=== PATIENT | male | born 1990 ===

== ENCOUNTER 2022-10-20 21:12 | Emergency (ER) | payer SELFPAY ==
--- OUTSIDE RECORDS SUMMARY | 2022-10-20 21:18 | XMS REPORT | Continuity of Care Document ---
:1990 Author Organization [facility] t Address [address] [facility]. [address] [place] [address] Care Team Providers Name Role Phone Asked, No Pcp Primary Care Physician Unavailable Trish Cotton Attending Clinician Unavailable Trish Cotton Attending Clinician [phone] Doctor Unassigned, Christopher Attending Clinician Unavailable SMOOTH HOLLAND Attending Clinician Unavailable Smooth Holland MD Attending Clinician [phone] Erick Bennett Attending Clinician Unavailable Darby CROW Lucio Attending Clinician Shakira Cantor Attending Clinician Javier Crespo Attending Clinician Unavailable MARCIAL SILVA Attending Clinician Unavailable Marcial Silva MD Attending Clinician Billie Sierra RN Attending Clinician Emeka Hahn MD Attending Clinician Callie Ruiz Attending Clinician Unavailable ISIAH MEDINA Attending Clinician Unavailable Kristine Manuel Attending Clinician Unavailable Kristine Manuel Attending Clinician [phone] Lilly Veloz Attending Clinician Unavailable George Stewart Attending Clinician Unavailable Physician, No Primary or Family Admitting Clinician UnavailYaya Heller Admitting Clinician Unavailable SMOOTH HOLLAND Admitting Clinician Unavailable MARCIAL SILVA Admitting Clinician Unavailable AMMY TORRES Admitting Clinician Unavailable Payers Payer Name Policy Type Policy Number Effective Date Expiration Date S [facility] MEDICAID PENDING PENDING 2019 00:00:00 Problems Condition Condition Condition Status Onset Resolution Last Treating Co mments Source Name Details Category Date Date Treatment Clinician Date Obesity Obesity Disease Active 2019- Univers (BMI (BMI 1-15 ity of 30-39.9) 30-39.9) 00:00: [place] [address] Medical Branch Soft Soft Disease Active 2020-0 Univers tissue tissue 1-14 ity of infection infection 00:00: [place] [address] Medical Branch Laceration Laceration Disease Active 2020-0 Overview : Univers of right of right 1-14 Formattin ity of thigh, thigh, 00:00: g of this [place] initial initial 00 note Medical encounter encounter might be Br anch different from the original. Added automatic ally from request for surgery [id number] Allergies, Adverse Reactions, Alerts Allergy Allergy Status Severity Reaction(s) Onset Inactive Treating Comm ents Source Name Type Date Date Clinician penicill DA Active [place] UNKNOWN 2020-0 [facility] in G 5-09 Clear 00:00: [place] 00 [facility] penicill DA Active [place] UNKNOWN 2018- [facility] in G 2-13 [place] 00:00: d 00 [facility] penicill DA Active U 2013-0 [facility] in G 7-26 Clear 00:00: [place] 00 [facility] PENICILL Drug Active Unknown-Cmnt 2004-0 Un fredi INS Class 7-21 ity of 00:00: [address] Penicill Propensi Active Unknown - 2004-0 Pt isn't U nivers ins ty to See comments 7-21 sure of ity of adverse 00:00: reaction. [place] reaction Medical s Branch Family History Family Member Diagnosis Comments Start Date Stop Date Source Father Alive and well 2013-07-09 2013-07-09 [facility] and 00:00:00 00:00:00 Wellness Sister Heart disease 2013-07-09 2013-07-09 [facility] and 00:00:00 00:00:00 Wellness Mother Alive and well 2013-07-09 2013-07-09 [facility] and 00:00:00 00:00:00 Wellness Brother Alive and well 2013-07-09 2013-07-09 [facility] and 00:00:00 00:00:00 Wellness Social History Social Habit Start Date Stop Date Quantity Comments Source History of tobacco 2022-06-20 Moderate [facility] use 00:00:00 cigarette smoker and Well ness (10-19 cigs/day) Health-related 2022-06-20 soda and energy [facility] al Health behavior 00:00:00 drinks, 24 oz and Wellnes s (observable entity) Tobacco use and 2022-06-20 Cigarette: No [facility] exposure 00:00:00 Details Available and Wel lness Quantity Details - Cigarette: 10 Cigarettes per day Exposure to 2022-04-13 2022-04-23 Not sure University of SARS-CoV-2 (event) 00:00:00 06:45:00 [facility] Cigarettes smoked 2018-09-22 2018-09-22 Celso allen current (pack per 00:00:00 00:00:00 Hospita l day) - Reported Alcohol intake 2018-09-22 2018-09-22 Current drinker Metho dist 00:00:00 00:00:00 of [facility] (finding) Sex [birth year] At [birth year] [facility] 00:00:00 00:00:00 Hospital Smoking Status Start Date Stop Date Source Unknown if ever smoked [facility] Heavy tobacco smoker 2022-05-12 00:00:00 [facility] Smokes tobacco daily 2019-09-03 00:00:00 [facility] ity of [place] Medical [facility] Medications Ordered Filled Start Stop Current Ordering Indication Dosage Frequency Signature Comments Components Source Medication Medication Date Date Medication? Clinician (SIG) Name Name losartan 50 2021-08 No 1{table Q1D take 1 [Pat Resp [facility] mg-hydrochl 1- t} tablet by = 0 pct;] Health orothiazide 00:00: oral route Group D and 12.5 mg 00 every day Well[facility] tablet s losartan 50 2021-08 No 1{table Q1D take 1 [Pat Resp [facility] mg-hydrochl 1- t} tablet by = 0 pct;] Health orothiazide 00:00: oral route Group D and 12.5 mg 00 every day [facility] tablet s losartan 50 2021-08 No 1{table Q1D take 1 [Pat Resp [facility] mg-hydrochl 1- t} tablet by = 0 pct;] Health orothiazide 00:00: oral route Group D and 12.5 mg 00 every day [facility] tablet s ondansetron 2021- No 4mg 4 mg, Slow Univers (ZOFRAN 04-23 IV Push, ity of (PF)) 11:30: 11:24 ONCE, 1 [place] injection 4 00 :00 dose, On Medi bridget mg 04/23/22 Branch at 0630, ESTHER morpHINE (4 2021- No 4mg 4 mg, Slow Univers mg/mL) 04-23 IV Push, ity of injection 4 11:30: 11:23 [place] 1 [place] :[place] dose, On Medical 04/23/22 Branch at 0630, STAT azithromyci Yes [id number] 250mg Take 1 Univers n 250 mg 7-19 tablet by ity of tablet 00:00: mouth [place] 00 daily. Medical Take 500 Branch mg day 1, then 250 mg days 2 to 5. azithromyci Yes [id number] 250mg Take 1 Univers n 250 mg 7-19 tablet by ity of tablet 00:00: mouth [place] 00 daily. Medical Take 500 Branch mg day 1, then 250 mg days 2 to 5. cyclobenzap 2020-0 Yes [id number] 10mg Take 1 Univers rine 10 mg 6-04 tablet by ity of tablet 00:00: mouth 3 [place] 00 (three) Medical times Branch daily as needed for Muscle Spasms. cyclobenzap 2020-0 Yes [id number] 10mg Take 1 Univers rine 10 mg 6-04 tablet by ity of tablet 00:00: mouth 3 [place] 00 (three) Medical times Branch daily as needed for Muscle Spasms. mupirocin 2 2020-0 Yes [id number] Apply to Univers % ointment 1-26 area(s) 3 ity of 00:00: (three) [place] 00 times Medical daily. Branch mupirocin 2 2020-0 Yes [id number] Apply to Univers % ointment 1-26 area(s) 3 ity of 00:00: (three) [place] 00 times Medical daily. Branch HYDROcodone 2020-0 Yes [id number] 1{tbl} Take 1 Univers -acetaminop 1-21 [id number] tablet by i ty of hen 10-325 00:00: mouth [place] mg tablet 00 every 6 Medical (six) Branch hours as needed for Pain (scale 4-6) or Pain (scale 7-10). HYDROcodone 2020-0 Yes [id number] 1{tbl} Take 1 Univers -acetaminop 1-21 [id number] tablet by i ty of hen 10-325 00:00: mouth [place] mg tablet 00 every 6 Medical (six) Branch hours as needed for Pain (scale 4-6) or Pain (scale 7-10). acetaminoph 2020-0 Yes [id number] 650mg Take 1 Univers en (TYLENOL 1-17 [id number] tablet by i ty of 8 HOUR) 650 00:00: mouth [place] mg CR 00 every 8 Medical tablet (eight) Branch hours as needed for Pain. acetaminoph 2020-0 Yes [id number] 650mg Take 1 Univers en (TYLENOL 1-17 [id number] tablet by i ty of 8 HOUR) 650 00:00: mouth [place] mg CR 00 every 8 Medical tablet (eight) Branch hours as needed for Pain. No known 2019-0 No No known Metho di medications 2-[address] 15:23: s Hosp[facility] 06 l No known 2019-0 No No known Metho di medications 2-[address] 15:23: s Hospita 06 l No known 2019-0 No No known Metho di medications 2-[address] 15:23: s [facility]osp[facility] 06 l No known 2019-0 No No known Metho di medications 2-[address] 15:23: s Hospita 06 l No known 2019-0 No No known Metho di medications 2-[address] 15:23: s Hospita 06 l No known 2019-0 No No known Metho di medications 2-[address] 15:23: s Hospita 06 l acetaminoph Yes [id number] 1{tbl} Take 1-2 Univers en-codeine 1-22 tablets by ity of 300-30 mg 00:00: mouth [place] tablet 00 every 6 Medical (six) Branch hours as needed for Pain (scale 1-3). acetaminoph Yes [id number] 1{tbl} Take 1-2 Univers en-codeine 1-22 tablets by ity of 300-30 mg 00:00: mouth [place] tablet 00 every 6 Medical (six) Branch hours as needed for Pain (scale 1-3). MEDROL 2005-0 Yes as Univers (KASEY) 4 MG 4-07 directed ity o f ORAL DSPK 00:00: [address] MEDROL 2006-0 Yes as Univers (KASEY) 4 MG 4-07 directed ity o f ORAL DSPK 00:00: [address] LORATADINE 2005-1 Yes take one Uni vers 10 MG ORAL 0-20 po x ity of TAB 00:00: 30days [address] LORATADINE 2005-1 Yes take one Uni vers 10 MG ORAL 0-20 po x ity of TAB 00:00: 30days [address] Immunizations Ordered Filled Immunization Date Status Comments Sourc e Immunization Name Name Td 2022-04-23 Completed University of 00:00:00 [facility] Td 2022-04-23 Completed University of 00:00:00 [facility] Td 2018-09-10 Completed University of 00:00:00 [facility] Td 2018-09-10 Completed [facility] 00:00:00 [facility] Vital Signs Vital Name Observation Time Observation Value Comments Source Body temperature 2022-04-23 15:30:00 37.06 Gabriela [facility] Respiratory rate 2022-04-23 15:30:00 23 /min [facility] O[facility] saturation in 2022-04-23 15:30:00 98 /min [facility] Arterial blood by [facility] Pulse oximetry Branch Systolic blood 2022-04-23 15:30:00 164 mm[Hg] Univer sity of pressure [facility] Diastolic blood 2022-04-23 15:30:00 112 mm[Hg] [facility] 2022-04-23 15:30:00 89 /min Universi ty [facility] Body height 2022-04-23 11:16:41 177[facility]8 [facility] weight 2022-04-23 11:16:41 108.863 kg [facility] BMI 2022-04-23 11:16:41 34.44 [facility]m2 [facility] 2022-06-20 14:44:00 150 mm[Hg] [facility] and Systolic Wellness Intravascular 2022-06-20 14:44:00 103 mm[Hg] [facility] and Diastolic Wellness Body height 2022-06-20 14:40:00 177.80 cm [facility] Wellness Body Weight 2022-06-20 14:40:00 109.860 kg [facility] Intravascular 2022-06-20 14:40:00 140 mm[Hg] [facility] Systolic Wellness Intravascular 2022-06-20 14:40:00 87 mm[Hg] [facility] Diastolic Wellness Heart Rate 2022-06-20 14:40:00 85 /min [facility] Body Temperature 2022-06-20 14:40:00 36.67 Gabriela [facility] Respiratory rate 2022-06-20 14:40:00 16 /min [facility] Body mass index 2022-06-20 14:40:00 34.75 kg/m2 [facility] Health and Wellness SaO2 % BldA PulseOx 2022-06-20 14:40:00 100 /min [facility] Body height 2022-05-12 13:45:00 177.80 cm [facility] Body Weight 2022-05-12 13:45:00 109.588 kg [facility] Wellness Intravascular 2022-05-12 13:45:00 137 mm[Hg] [facility] Health and Systolic Wellness Intravascular 2022-05-12 13:45:00 88 mm[Hg] [facility] Health and Diastolic Wellness Heart Rate 2022-05-12 13:45:00 93 /min [facility] Well[facility] Body Temperature 2022-05-12 13:45:00 36.67 [facility]ela [facility] Respiratory rate 2022-05-12 13:45:00 18 /min [facility] Health and Wellness Body mass index 2022-05-12 13:45:00 34.67 kg/m2 [facility] and Wellness SaO2 % BldA PulseOx 2022-05-12 13:45:00 98 /min [facility] Health and Wellness Procedures Procedure Date / Time Performing Clinician Source Performed [facility] 2022-06-22 05:01:00 [facility] Name Medical Branch Established Patient 2022-06-20 00:00:00 [facility] Health and Office Visit-Level Wellness Three Nominal Fee 2022-06-20 00:00:00 [facility] Heal th and Wellness Nominal Fee 2022-05-12 00:00:00 [facility] Heal th and Wellness Radiologic examination, 2022-05-12 00:00:00 [facility] Health and forearm, 2 views (APand Wellness Lateral) Established Patient 2022-05-12 00:00:00 [facility] and Office Visit-Level Wellness Three AR RESUP NPTERF WND 2022-04-23 13:12:46 [facility] BODY 2.6-7.5 CM [facility] Branch AR RESUPERF WND FACE 2022-04-23 13:11:23 Khushi Villaseñor [facility] 2.6-5 CM [facility] Branch XR CLAVICLE COMP LEFT 2022-04-23 12:05:33 Amalia Smooth [facility] XR ELBOW >3 VW LEFT 2022-04-23 12:05:33 Smooth Holland [facility] XR FOREARM 2 VW LEFT 2022-04-23 12:05:33 Smooth Holland [facility] XR HAND 3+ VW LEFT 2022-04-23 12:05:33 Smooth Holland [facility] XR HUMERUS 2 VW LEFT 2022-04-23 12:05:33 Smooth Holland [facility] XR SHOULDER 2+ VW LEFT 2022-04-23 12:05:33 [facility] CERVICAL SPINE WO 2022-04-23 11:44:08 Smooth [facility] CONTRAST [facility] CT 2022-04-23 11:44:08 Smooth [facility] MAXILLOFACIAL/MANDIBLE [facility] WO CONTRAST CT HEAD WO CONTRAST 2022-04-23 11:44:08 Smooth Holland [facility] COMP. METABOLIC PANEL 2022-04-23 11:19:00 Smooth Holland [facility] ([id number]) [facility] CBC WITH DIFF 2022-04-23 11:19:00 Amalia [facility] [id number] 2020-04-12 00:00:00 [facility] [id number] 2020-04-12 00:00:00 [facility] [id number] 2020-04-12 00:00:00 [facility] Nominal Fee 2019-08-28 00:00:00 [facility] Heal th and Wellness Urinalysis, Auto W/O 2019-08-28 00:00:00 [facility] Health and Scope Wellness Established Patient 2019-08-28 00:00:00 [facility] Health and Office Visit-Level Wellness Three Chylmd Trach DNA Amp 2019-08-28 00:00:00 [facility] Probe Wellness N.Gonorrhea DNA Amp 2019-08-28 00:00:00 [facility] Prob Wellness Urinalysis culture and 2019-08-28 00:00:00 [facility] Health and sensitivity Wellness Nominal Fee 2019-08-01 00:00:00 [facility] Wellness Established Patient 2019-08-01 00:00:00 [facility] Health and Office Visit-Level Wellness Three Nominal Fee 2018-09-17 00:00:00 [facility] and Wellness Established Patient 2018-09-17 00:00:00 [facility] Health and Office Visit-Level Two Wellness Established Patient 2017-05-22 00:00:00 [facility] Health and Office Visit-Level Wellness Three New Patient Office 2013-07-09 00:00:00 [facility] and Visit-Level Two Wellness Void Duplicate 2011-12-09 00:00:00 [facility] Heal th and Encounter Wellness Clinic Fee 2010-08-16 00:00:00 [facility] Heal th and Wellness Established Patient 2010-08-16 00:00:00 [facility] Health and Office Visit-Level Two Wellness Supplies and Materials 2010-08-16 00:00:00 [facility] Health and Wellness Encounters Start End Encounter Admission Attending Care Care Encounter Source Date/Time Date/Time Type Type Clinicians Facility Department ID 2022-05-15 Outpatient CHW CHW [id number] [facility] 12:20:44 6 [facility] 2021-06-17 Emergency [facility] [id number] Univers 07:31:30 ity [facility] 2021-06-16 Emergency [facility] [id number] Univers 23:33:17 ity [facility] 2020-04-12 Inpatient HCAMN CUCA [id number] [facility] 19:39:00 [id number] [facility] 2020-04-11 Inpatient HCAMN CUCA [id number] [facility] 09:02:00 [id number] [facility] 2019-12-27 Inpatient HCAMN MEXP [id number] [facility] 00:15:00 [id number] [facility] 2022-07-11 2022-07-11 Outpatient KING Cotton CHW [id number] [facility] 15:14:00 15:14:00 [facility] 2022-07-11 2022-07-11 Outpatient KING Cotton [id number] [facility] 15:14:00 15:14:00 Trish [id number] [facility] [id number] a nd 9af [id number] [facility] 2022-06-26 2022-06-26 Outpatient KING Cotton CHW [id number] [facility] 13:41:00 13:41:00 Trish [facility] 2022-06-26 2022-06-26 Outpatient KING Cotton [id number] [facility] 13:41:00 13:41:00 Trish [id number] [facility] [id number] a nd [id number] [facility] 2022-06-22 2022-06-22 Orders Doctor WILLIAM [id number] Univers 00:00:00 00:00:00 Only Unassigned, MISHA [id number] ity of Christopher [facility] 4.2.7.2.686 Hector as [id number] [place] [address] Branch 2022-06-20 2022-06-20 Outpatient KING Cotton CHW [id number] [facility] 14:40:00 14:40:00 [facility] 2022-06-20 2022-06-20 Establishe KING Cotton [id number] [facility] 14:40:00 14:40:00 d Patient Trish [id number] Health Office [id number] a nd Visit-[facility] 015 [id number] [facility] alta [facility] 2022-05-25 2022-05-25 Outpatient KING Cotton CHW [id number] [facility] 15:16:00 15:16:00 [facility] 2022-05-25 2022-05-25 Outpatient KING Cotton [id number] [facility] 15:16:00 15:16:00 Trish [id number] Health [id number] a nd [id number] [id number] [facility] 2022-05-15 2022-05-15 Outpatient KING Cotton CHW [id number] [facility] 14:43:00 14:43:00 [facility] 2022-05-15 2022-05-15 Outpatient KING Cotton [id number] [facility] 14:43:00 14:43:00 Trish [id number] Health [id number] a nd [id number] Hector gore 2022-05-12 2022-05-12 Outpatient KING Cotton CHW [id number] [facility] 13:40:00 13:40:00 Trish [facility] and Hector gore 2022-05-12 2022-05-12 Establishe KING Cotton [id number] [facility] 13:40:00 13:40:00 d Patient Trish [id number] Health Office [id number] a nd [facility] [id number] [facility] Roth s 2022-04-23 2022-04-23 Emergency X AUFDERHEIDE [facility] ERT [id number] Univers 06:15:00 10:46:00 , SMOOTH brown of [facility] 2022-04-23 2022-04-23 [facility] [id number] Univers 06:15:00 10:46:00 , Smooth VALERIO [id number] i ty of Criselda KELLY 4.2.7.2.686 [facility] [id number] [address] 2020-04-12 2020-04-12 Outpatient Maishagavin, LAURIE LABO [id number] [facility] 23:58:00 23:58:00 Erick [id number] [facility] 2020-03-07 2020-03-07 Emergency [facility] [id number] 06:06:15 10:36:00 [facility] [id number] Yolanda 4.2.7.2.686 Lynn [id number] [place] [address] (CLC) 2020-01-22 2020-01-22 Emergency Leidy, [facility] [id number] 13:25:46 17:00:00 Shakira Valerio 350.1.13.10 [place] 4.2.7.2.686 [place] [id number] 2020-01-22 2020-01-22 Orders Doctor WILLIAM [id number] 00:00:00 00:00:00 Only Unassigned, MISHA 350.1.13.10 Christopher [place] [id number] 2020-01-05 2020-01-05 Outpatient KING Crespo W [id number] [facility] 15:09:00 15:09:00 [facility] 2019-11-14 2019-11-15 Emergency X [facility] ERT [id number] Univers 23:57:34 05:49:00 MARCIAL brown [facility] 2019-11-14 2019-11-15 Emergency [facility] [id number] 23:57:34 05:49:00 Marcial Valerio 350.1.13.10 [place] 4.2.7.2.686 [place] [id number] 2019-10-07 2019-10-07 Patient Melva Sierra [id number] 00:00:00 00:00:00 Outreach Billie Lanier [id number] El[place] 4.2.7.2.686 [id number] 2019-09-22 2019-09-23 Emergency Emeka Hahn [facility] [id number] 23:25:55 00:11:00 Health [id number] Clear 4.2.7.2.686 Lynn [id number] [place] [address] ([facility]) 2019-09-14 2019-09-14 [facility] [id number] 17:55:33 19:55:00 Shakira [facility] 350.1.13.10 League 4.2.7.2.686 [facility] [id number] [address] ([facility]) 2019-09-11 2019-09-11 Patient Carrington-Yair Floydn [id number] 08:42:44 09:27:44 Outreach Yannick kay [id number] Callie Medina [place] 4.2.7.2.686 [id number] 2019-09-10 2019-09-10 Patient James Frye [id number] 00:00:00 00:00:00 Outreach Yannick kay [id number] Callie C [place] 4.2.7.2.686 [id number] 2019-09-08 2019-09-08 Transition Melva Sierra [id number] 00:00:00 00:00:00 of Care Billie A [place] 350.1.13.10 [place] 4.2.7.2.686 [id number] 403 2019-09-02 2019-09-05 Inpatient X CAROL, [facility] ANGIE [id number] Univers 19:43:13 13:30:00 ISIAH brown [facility] 2019-09-02 2019-09-02 Outpatient [facility] [id number] [facility] 09:07:00 09:07:00 , [facility] 2019-08-28 2019-08-28 Outpatient [facility] [id number] [facility] 10:20:00 10:20:00 , [facility] 2019-08-28 2019-08-28 [facility] [id number] [facility] 10:20:00 10:20:00 d Patient , Kristine [id number] Health Office [id number] a nd Visit-[facility] [id number] [id number] [facility] 2019-08-11 2019-08-11 Outpatient Cherie, [facility] [id number] [facility] 11:52:00 11:52:00 [facility] 2019-08-01 2019-08-01 [facility] [id number] [facility] 16:20:00 16:20:00 [facility] 2019-08-01 2019-08-01 [facility] [id number] [facility] 16:20:00 16:20:00 d Patient [id number] Health Office [id number] a nd Visit-Leve 9af [id number] Ramses Roth s 2018-10-23 2018-10-23 Outpatient Terry, W CHW [id number] [facility] 10:40:00 10:40:00 [facility] Young s 2018-09-19 2018-09-19 [facility] [id number] [facility] 11:23:00 11:23:00 [facility] 2018-09-17 2018-09-17 [facility] [id number] [facility] 16:00:00 16:00:00 [facility] Hector s 2018-09-17 2018-09-17 Establishe [facility] [id number] [facility] 16:00:00 16:00:00 d Patient [id number] [id number] Health Office [id number] a nd Visit-Leve 9af [id number] Ramses Mendez s 2017-05-22 2017-05-22 Establishe [facility] [id number] [facility] 11:00:00 11:00:00 d Patient Vipul-44ba-85b [id number] -[id number] Health Office [id number] a nd Visit-Leve 9af [id number] Ramses Roth s 2013-07-09 2013-07-09 New [facility] [id number] e7d78b 3e-0 [facility] 14:00:00 14:00:00 Patient Isamar44ba-85b [id number] Health Office [id number] a nd Visit-Leve 9af [id number] Ramses Mendez s 2011-12-09 2011-12-09 Outpatient W [id number] be5 [id number]-6 [facility] 12:00:00 12:00:00 [id number]-4504-901 73b-46ed-8 [facility] [id number] a nd ee2 73a198 Hector s 2010-08-16 2010-08-16 [facility] [id number] bfa 2g9cr-8 [facility] 14:35:00 14:35:00 d Patient 7a-44q7-11y [id number]-5139 -9 Health Office [id number] morgan-1dcbb6 a nd Visit-Leve 257 [id number] Ramses Mendez s 2006-06-18 2006-06-18 Outpatient [facility] [id number] [facility] 00:00:00 10:45:00 6 ity of [facility] 2006-05-21 2006-05-21 [facility] [id number] [facility] 00:00:00 14:45:00 5 ity of [facility] 2006-05-07 2006-05-07 [facility] [id number] [facility] 00:00:00 12:01:00 1 ity [facility] 2006-04-25 2006-04-25 [facility]patient [facility] [id number] [facility] 00:00:00 15:19:00 6 ity of [facility] 2006-04-11 2006-04-11 [facility]patient [facility] [id number] [facility] 00:00:00 16:25:00 1 ity of [facility] 2006-04-05 2006-04-05 [facility] [id number] [facility] 00:00:00 15:40:00 9 ity of [facility] 2006-04-02 2006-04-02 [facility] [id number] [facility] 00:00:00 11:01:00 7 ity of [facility] 2006-03-26 2006-03-26 [facility] [id number] [facility] 00:00:00 15:00:00 0 ity of [facility] 2006-03-14 2006-03-14 [facility] [id number] [facility] 00:00:00 14:38:00 3 ity of [facility] 2005-06-14 2005-06-14 [facility] [id number] [facility] 00:00:00 15:25:00 3 ity [facility] 2005-05-31 2005-05-31 [facility] [id number] [facility] 00:00:00 16:39:00 9 ity [facility] 2005-03-15 2005-03-15 Outpatient [facility] [id number] Univers 00:00:00 13:54:00 9 [facility] Results Test Description Test Time Test Comments Results Result Comments Source COMP. METABOLIC PANEL (49090) 2022-04-23 11:52:23 Test Item Value Reference Range Interpretation Comme nts NA (test code = 5811276562) 137 mmol/L 135-145 K (test code = 5694076299) 4.4 mmol/L 3.5-5 CL (test code = 8972447946) 101 mmol/L 98-108 CO2 TOTAL (test code = 2206968657) 30 mmol/L 23-31 AGAP (test code = 1893858620) 2-16 BUN (test code = 5923869262) 17 mg/dL 7-23 GLUCOSE (test code = 2147654257) 108 mg/dL 70-110 CREATININE (test code = 1.14 mg/dL 0.6-1.25 8799259455) TOTAL BILI (test code = 0.7 mg/dL 0.1-1.1 6500906484) CALCIUM (test code = 8140296633) 8.8 mg/dL 8.6-10.6 T PROTEIN (test code = 7038704793) 6.3 g/dL 6.3-8.2 ALBUMIN (test code = 8824485812) 4.3 g/dL 3.5-5 ALK PHOS (test code = 5486550924) 90 U/L 34-122 ALTv (test code = 1742-6) 42 U/L 5-50 AST(SGOT) (test code = 7706776726) 51 U/L 13-40 H eGFR (test code = 5991766219) mL/min/1.73m2 MARION (test code = MARION) Association of Glomerular Filtration Rate (GFR) and Staging of Kidney Disease* + +-------- + ------+| GFR (mL/min/1.73 m2) ?| With Kidney Damage ?| ?Without Kidney Damage+ +-- + +| ?>90 ?| ?Stage one ?| ? Normal ?+ +------- + -------+| ?60-89 ?| ?Stage two ?| ? Decreased GFR ? + +-------- + ------+| ?30-59 ?| ?Stage three ?| ? Stage three ? + +-------- + ------+| ?15-29 ?| ?Stage four ? | ? Stage four ?+ +------- + -------+| ?<15 (or dialysis) ? ?| ?Stage five ? | ? Stage five ?+ +------- + -------+ *Each stage assumes the associated GFR level has been in effect for at least three months. ?Stages 1 to 5, with or without kidney disease, indicate chronic kidney disease. Notes: Determination of stages one and two (with eGFR >59mL/min/1.73 m2) requires estimation of kidney damage for at least three months as defined by structural or functional abnormalities of the kidney, manifested by either:Pathological abnormalities or Markers of kidney damage (including abnormalities in the composition of the blood or urine or abnormalities in imaging tests). Lab Interpretation (test code = Abnormal 18366-5) [facility] WITH [id number] 11:39:29 Test Item Value Reference Range Interpretation Comments WBC (test code = See_Comment H [Automated 5890-2) message] The system which generated this result transmit tito reference range : 4.20 - 10.70 10*3/?L. The reference range was not used to interpret this result as normal/abnormal . RBC (test code = See_Comment [Automated 329-8) message] The system which generated this result transmit tito reference range : 4.26 - 5.52 10*6/?L. The reference range was not used to interpret this result as normal/abnormal . HGB (test code = 15.2 g/dL 12.2-16.4 718-7) HCT (test code = 43.9 % 38.4-49.3 4544-3) MCV (test code = 91.1 fL 81.7-95.6 787-2) MCH (test code = 31.5 pg 26.1-32.7 785-6) MCHC (test code = 34.6 g/dL 31.2-35 786-4) RDW-SD (test code = 40.1 fL 38.5-51.6 77499-7) RDW-CV (test code = 12.0 % 12.1-15.4 L 788-0) PLT (test code = See_Comment [Automated 777-3) message] The system which generated this result transmit tito reference range : 150 - 328 10*3/ ?L. The reference range was not u sed to interpret th is result as normal/abnormal . MPV (test code = 11.5 fL 9.8-13 63724-4) NRBC/100 WBC (test See_Comment [Automat ed code = 6928961084) message] The system which generated this result transmit tito reference range : 0.0 - 10.0 /100 WBCs. The reference range was not used to interpret this result as normal/abnormal . NRBC x10^3 (test code See_Comment [Auto mated = 5298162144) message] The system which generated this result transmit tito reference range : 10*3/?L. The reference range was not used to interpret this result as normal/abnormal . GRAN MAT (NEUT) % 82.7 % (test code = 770-8) IMM GRAN % (test code 0.60 % = 8673100054) LYMPH % (test code = 10.6 % 736-9) MONO % (test code = 5.7 % 5905-5) EOS % (test code = 0.1 % 713-8) BASO % (test code = 0.3 % 706-2) GRAN MAT x10^3(ANC) 14.40 10*3/uL 1.99-6.95 H (test code = 3755718687) IMM GRAN x10^3 (test 0.11 10*3/uL 0-0.06 H code = 2200118737) LYMPH x10^3 (test code 1.84 10*3/uL 1.09-3.23 = 731-0) MONO x10^3 (test code 0.99 10*3/uL 0.36-1.02 = 742-7) EOS x10^3 (test code = 0.06-0.53 L 711-2) BASO x10^3 (test code 0.06 10*3/uL 0.01-0.09 = 704-7) Lab Interpretation Abnormal (test code = 51521-1) [facility]2020-08-27 09:06:00 Test Item Value Reference Range Interpretation Comments VANCOMYCIN (test code 2.4 MCG/ML 5.0-26.0 L Result is in = VANCO) Microgram per milliliter. Specimen comments: PLEASE DRAW RANDOM LEVEL PRIOR TO 0900 DOSEComments to High Density Finishing Operator: PLEASE DRAW RANDOM LEVEL PRIOR TO 0900 DOSEBASIC METABOLIC PANEL 2020-04-15 09:03:00 Test Item Value Reference Range Interpretation Comments SODIUM (test code = NA) 138 mmol/l 134.0-147.0 N POTASSIUM (test code = K) 3.5 mmol/L 3.6-5.2 L CHLORIDE (test code = CL) 100 mmol/l 98.0-107.0 N CARBON DIOXIDE (test code = CO2) 31.0 mmol/l 21.0-33.0 N ANION GAP (test code = GAP) 10.5 0-20 N GLUCOSE (test code = GLU) 101 mg/dl 70.0-110.0 N BLOOD UREA NITROGEN (test code = 8 mg/dl 7.0-18.0 N BUN) CREATININE (test code = CREAT) 0.87 mg/dL 0.60-1.30 N GFR NON BLACK (test code = 109 mL/min 105-110 N GFRNONBLACK) GFR BLACK (test code = GFRBLACK) 132 mL/min 127-133 N CALCIUM (test code = CA) 8.7 mg/dl 8.0-10.5 N PT. HARDSTICK WILL LET ANOTHER PHELB TRY E.LAB.KN .CBC W/AUTO DIFF 2020-04-15 08:36:00 Test Item Value Reference Range Interpretation Comments WHITE BLOOD CELL (test code = 6.9 K/mm3 4.5-11.0 N WBC) RED BLOOD CELL (test code = 4.42 M/mm3 4.40-5.90 N RBC) HEMOGLOBIN (test code = HGB) 14.3 gm/dL 13.0-17.0 N HEMATOCRIT (test code = HCT) 43.3 % 36.0-48.0 N MEAN CELL VOLUME (test code = 98.0 UM3 80.0-94.0 H MCV) MEAN CELL HGB (test code = MCH) 32.4 UUG 25.5-32.5 N MEAN CELL HGB CONCETRATION 33.0 gm/dL 29.0-35.5 N (test code = MCHC) RED CELL DISTRIBUTION WIDTH 12.9 % 11.5-15.0 N (test code = RDW) RED CELL DISTRIBUTION WIDTH SD 46.5 fL 34.8-50.2 N (test code = RDW-SD) PLATELET COUNT (test code = 231 K/mm3 150-400 N PLT) MEAN PLATELET VOLUME (test code 11.5 fl 7.4-10.4 H = MPV) NEUTROPHIL % (test code = NT%) 64.5 % 49.0-76.0 N IMMATURE GRANULOCYTE % (test 0.6 % 0.0-0.4 H code = IG%) LYMPHOCYTE % (test code = LY%) 24.6 % 23.0-38.0 N MONOCYTE % (test code = MO%) 7.7 % 1.0-10.0 N EOSINOPHIL % (test code = EO%) 1.7 % 1.0-5.0 N BASOPHIL % (test code = BA%) 0.9 % 0.0-1.0 N NEUTROPHIL # (test code = NT#) 4.4 K/mm3 2.4-6.3 N IMMATURE GRANULOCYTE # (test 0.04 x10 3/uL 0.00-0.07 N code = IG#) LYMPHOCYTE # (test code = LY#) 1.7 K/mm3 1.2-4.0 N MONOCYTE # (test code = MO#) 0.5 K/mm3 0.0-0.6 N EOSINOPHIL # (test code = EO#) 0.1 K/MM3 0.0-0.7 N BASOPHIL # (test code = BA#) 0.1 K/mm3 0.0-0.2 N PT HARDSTICK WILL LET ANOTHER PHELB TRY E.LAB.KN .VANCOMYCIN TROUGH 2020-04-14 15:18:00 Test Item Value Reference Range Interpretation Comments VANCOMYCIN TROUGH 32.8 mcg/mL 10-20 H Other dise ase (test code = VANCT) associat ed reference ranges: 10 - 15 mcg/mL Cellulit is, urinary tract infection 15 - 20 mcg/mL Bacterem ia, infective endocarditis, osteomyelitis, meningitis, pneumonia, herbert re skin/soft tissu e infection, spin al abscess Specimen comments: PLEASE DRAW VANCO TROUGH PRIOR TO 1500 DOSE, THANK YOUComments to High Density Finishing Operator: PLEASE MAKE SURE CHRISTY IS NOT HANGING, THANK YOU COMPREHENSIVE METABOLIC [id number] 07:21:00 Test Item Value Reference Range Interpretation Comments SODIUM (test code = NA) 135 mmol/l 134.0-147.0 N POTASSIUM (test code = K) 3.5 mmol/L 3.6-5.2 L CHLORIDE (test code = CL) 98 mmol/l 98.0-107.0 N CARBON DIOXIDE (test code = CO2) 28.7 mmol/l 21.0-33.0 N ANION GAP (test code = GAP) 11.8 0-20 N GLUCOSE (test code = GLU) 112 mg/dl 70.0-110.0 H BLOOD UREA NITROGEN (test code = 10 mg/dl 7.0-18.0 N BUN) CREATININE (test code = CREAT) 0.86 mg/dL 0.60-1.30 N GFR NON BLACK (test code = 110 mL/min 105-110 N GFRNONBLACK) GFR BLACK (test code = GFRBLACK) 133 mL/min 127-133 N TOTAL PROTEIN (test code = PROT) 6.5 GM/DL 6.0-8.1 N ALBUMIN (test code = ALB) 2.6 gm/dL 3.2-4.7 L CALCIUM (test code = CA) 8.6 mg/dl 8.0-10.5 N BILIRUBIN TOTAL (test code = 0.5 mg/dl 0.0-1.0 N BILT) SGOT/AST (test code = AST) 17 Units/L 15.0-37.0 N SGPT/ALT (test code = ALT) 22 Units/L 12.0-78.0 N ALKALINE PHOSPHATASE TOTAL (test 69 Units/L 50.0-136.0 N code = ALKP) CBC W/AUTO [id number] 07:12:00 Test Item Value Reference Range Interpretation Comments WHITE BLOOD CELL (test code = 15.1 K/mm3 4.5-11.0 H WBC) RED BLOOD CELL (test code = 4.13 M/mm3 4.40-5.90 L RBC) HEMOGLOBIN (test code = HGB) 13.1 gm/dL 13.0-17.0 N HEMATOCRIT (test code = HCT) 39.9 % 36.0-48.0 N MEAN CELL VOLUME (test code = 96.6 UM3 80.0-94.0 H MCV) MEAN CELL HGB (test code = MCH) 31.7 UUG 25.5-32.5 N MEAN CELL HGB CONCETRATION 32.8 gm/dL 29.0-35.5 N (test code = MCHC) RED CELL DISTRIBUTION WIDTH 12.9 % 11.5-15.0 N (test code = RDW) RED CELL DISTRIBUTION WIDTH SD 45.9 fL 34.8-50.2 N (test code = RDW-SD) PLATELET COUNT (test code = 258 K/mm3 150-400 N PLT) MEAN PLATELET VOLUME (test code 11.6 fl 7.4-10.4 H = MPV) NEUTROPHIL % (test code = NT%) 80.5 % 49.0-76.0 H IMMATURE GRANULOCYTE % (test 0.6 % 0.0-0.4 H code = IG%) LYMPHOCYTE % (test code = LY%) 11.1 % 23.0-38.0 L MONOCYTE % (test code = MO%) 7.1 % 1.0-10.0 N EOSINOPHIL % (test code = EO%) 0.5 % 1.0-5.0 L BASOPHIL % (test code = BA%) 0.2 % 0.0-1.0 N NEUTROPHIL # (test code = NT#) 12.1 K/mm3 2.4-6.3 H IMMATURE GRANULOCYTE # (test 0.09 x10 3/uL 0.00-0.07 H code = IG#) LYMPHOCYTE # (test code = LY#) 1.7 K/mm3 1.2-4.0 N MONOCYTE # (test code = MO#) 1.1 K/mm3 0.0-0.6 H EOSINOPHIL # (test code = EO#) 0.1 K/MM3 0.0-0.7 N BASOPHIL # (test code = BA#) 0.0 K/mm3 0.0-0.2 N UA RFLX MICR CULT IF [id number] 22:30:00 Test Item Value Reference Range Interpretation Comments UA GLUCOSE DIPSTICK NORMAL mg/dl NORMAL (test code = DGLUU) UA BILIRUBIN DIPSTICK NEGATIVE mg/dL NEGATIVE (test code = BILU) UA KETONE DIPSTICK 50 mg/dl mg/dl NEGATIVE A (test code = KETU) UA SPECIFIC GRAVITY 1.010 1.000-1.030 (test code = SGU) UA BLOOD DIPSTICK NEGATIVE NEGATIVE (test code = OLY) Nehemias/micL UA PH DIPSTICK (test 6.0 5.0-9.0 code = SAVI) UA PROTEIN DIPSTICK 15 mg/dl mg/dl NEGATIVE A (test code = PROU) UA UROBILINIOGEN NORMAL mg/dl NORMAL DIPSTICK (test code = URO) UA NITRITE DIPSTICK NEGATIVE NEGATIVE (test code = RAHUL) UA LEUKOCYTE ESTERASE NEGATIVE NEGATIVE DIPSTICK (test code = Jonelle/micL LEUU) UA WBC (test code = 0-3 WBC/HPF NONE WBCU) UA SQUAMOUS CELLS 0-2 #/hpf (test code = SQU) UA CULTURE NEEDED? NO, WBC<10 Culture Chk Criteria not (test code = UACULT) Criteria met, Ur ine Culture cancelled. Indication for culture: Sev. Sepsis-no other srcSpecimen Description: CLEAN CATCHUA RFLX MICR CULT IF [id number] 22:23:00 Test Item Value Reference Range Interpretation Comments UA GLUCOSE DIPSTICK (test NORMAL mg/dl NORMAL code = DGLUU) UA BILIRUBIN DIPSTICK (test NEGATIVE mg/dL NEGATIVE code = BILU) UA KETONE DIPSTICK (test 50 mg/dl mg/dl NEGATIVE A code = KETU) UA SPECIFIC GRAVITY (test 1.010 1.000-1.030 code = SGU) UA BLOOD DIPSTICK (test NEGATIVE Nehemias/micL NEGATIVE code = OLY) UA PH DIPSTICK (test code = 6.0 5.0-9.0 SAVI) UA PROTEIN DIPSTICK (test 15 mg/dl mg/dl NEGATIVE A code = PROU) UA UROBILINIOGEN DIPSTICK NORMAL mg/dl NORMAL (test code = URO) UA NITRITE DIPSTICK (test NEGATIVE NEGATIVE code = RAHUL) UA LEUKOCYTE ESTERASE NEGATIVE Jonelle/micL NEGATIVE DIPSTICK (test code = LEUU) UA WBC (test code = WBCU) WBC/HPF NONE UA CULTURE NEEDED? (test Criteria Culture Chk code = UACULT) Indication for culture: Sev. Sepsis-no other srcSpecimen Description: CLEAN CATCH- CT UP EXTREM W/CONT [id number] 21:31:00 FAX: Marco Antonio Osman DO [phone] [place]: St: REG Name: DILLAN HITCHCOCK [facility] : 1990 Age/S: 29/M6801 [facility] Unit: [id number] [place]: [place] Phys: [place] [id number] Acct: [id number] Dis Date: Status: REG ER PHONE #: [phone] Exam Date: 04/12/20202113 FAX#: [phone] Reason: Extensive pain, induration, R/O nec fac EXAMS: CPT CODE: [id number] CT UP EXTREM W/[place] [address] Examination: CT scan right upper extremity with contrast. Location code: H 60. TECHNIQUE: Multiple axial images of the right upper extremity were obtained after intravenous and demonstration of contrast with sagittal and coronal reconstructions. CT examination was performed usingautomated dose reduction. 100 mL of Isovue-300 contrast was injected intravenously. GFR measures 78. Discussion: Clinical history significant for pain and induration. Extensive subcutaneous edema is identified in the soft tissues surrounding the elbow and forearm. Predominantly this edema is in the posterior soft tissues. No discrete abscess is noted. No air is identified within the fascial planes to suggest the diagnosis of necrotizing fasciitis. The muscles are normal in appearance. No intramuscular abscess is identified. There is no evidence for acute fracture or dislocation. No erosive changesidentified to suggest the presence of acute osteomyelitis. IMPRESSION: 1. Diffuse cellulitis and edema as detailed above. 2. No definite abscess is identified. 3. There is no evidence for necrotizing fasciitis. at 2131 Reported and signed by: SHADE BOWENS CC: Marco Antonio Osman DO Technologist: COREEN Chu Dt/Tm: 04/12/2020 (2131) t.SDR.VR5 Orig Print D/T: S: 04/12/2020 (5 PAGE 1 Signed ReportCBC W/MANUAL [id number] 20:30:00 Test Item Value Reference Range Interpretation Comments WHITE BLOOD CELL (test code = 24.6 K/mm3 4.5-11.0 H WBC) RED BLOOD CELL (test code = 4.49 M/mm3 4.40-5.90 N RBC) HEMOGLOBIN (test code = HGB) 14.8 gm/dL 13.0-17.0 N HEMATOCRIT (test code = HCT) 43.7 % 36.0-48.0 N MEAN CELL VOLUME (test code = 97.3 UM3 80.0-94.0 H MCV) MEAN CELL HGB (test code = MCH) 33.0 UUG 25.5-32.5 H MEAN CELL HGB CONCETRATION 33.9 gm/dL 29.0-35.5 N (test code = MCHC) RED CELL DISTRIBUTION WIDTH 12.8 % 11.5-15.0 N (test code = RDW) RED CELL DISTRIBUTION WIDTH SD 45.4 fL 34.8-50.2 N (test code = RDW-SD) PLATELET COUNT (test code = 219 K/mm3 150-400 N PLT) MEAN PLATELET VOLUME (test code 11.8 fl 7.4-10.4 H = MPV) NEUTROPHIL % (test code = NT%) 89.6 % 49.0-76.0 H IMMATURE GRANULOCYTE % (test 1.8 % 0.0-0.4 H code = IG%) LYMPHOCYTE % (test code = LY%) 2.7 % 23.0-38.0 L MONOCYTE % (test code = MO%) 5.6 % 1.0-10.0 N EOSINOPHIL % (test code = EO%) 0.0 % 1.0-5.0 L BASOPHIL % (test code = BA%) 0.3 % 0.0-1.0 N NEUTROPHIL # (test code = NT#) 22.0 K/mm3 2.4-6.3 H IMMATURE GRANULOCYTE # (test 0.45 x10 3/uL 0.00-0.07 H code = IG#) LYMPHOCYTE # (test code = LY#) 0.7 K/mm3 1.2-4.0 L MONOCYTE # (test code = MO#) 1.4 K/mm3 0.0-0.6 H EOSINOPHIL # (test code = EO#) 0.0 K/MM3 0.0-0.7 N BASOPHIL # (test code = BA#) 0.1 K/mm3 0.0-0.2 N TOTAL CELLS COUNTED (test code 100 #CELLS = TCC) SEGMENTED NEUTROPHILS (test 86 % 50.0-70.0 H code = SEG) BAND NEUTROPHIL (test code = 4 % 1.0-4.0 N BAND) LYMPHOCYTE (test code = LYMPH) 4 % 20-40 L ATYPICAL LYMPH (test code = 2 1.0-4.0 N ALYMPH) MONOCYTE (test code = MON) 4 % 0-10 N MORPHOLOGY COMMENT (test code = NM MOC) PLATELET ESTIMATE (test code = ADQ PLTEST) PLATELET MORPHOLOGY (test code APPEAR LARGE = PLTMORPH) - XR CHEST 1 [id number] 20:24:00 FAX: Marco Antonio Osman DO [phone] [place]: St: REG Name: DILLAN HITCHCOCK [facility] : 1990 Age/S: 29/M6801 [facility] Unit #: [id number] [place] Phys: [place] [id number] Acct: [id number] Dis Date: Status: REG ER PHONE #: [phone] Exam Date: 04/12/20202005 FAX #: [phone] Reason: Code SEPSIS EXAMS: CPT CODE: [id number] XR CHEST 1 V 96394 Clinical Information: Code sepsis. Fever. Dictation Location: COMPARISON: No recent prior. FINDINGS: Portable frontal view of the chest taken at 1959 hours shows monitoring electrodes overlying the chest wall. The heart size and pulmonary vessels are unremarkable. The lungs appear clear of active infiltrate or effusion. The bones appear intact as demonstrated. IMPRESSION: No active disease of the heart or lungs identified. at 2023 Reported and signed by: David Licea M.D. CC: Marco Antonio Osman DO Technologist: MARYELLEN Chu Date/T bonita/By: 04/12/2020 (2023) : By: NieshaAGV PAGE 1 Signed Report FAX: Marco Antonio Osman DO [phone] [place]: St: REG -- Name: DILLAN HITCHCOCK [facility] : 1990 Age/S: 29/M [address] [facility] Unit #: [id number] [place]: [place] [id number] Acct: [id number] Dis Date: Status: REG ER PHONE #: [phone] Exam Date: 04/12/20202005 FAX #: [phone] Reason: Code SEPSIS EXAMS: CPT CODE: [id number] XR CHEST 1 V 49087 (Continued) Orig Print D/T: S: 04/12/2020 (2026) PAGE 2 Signed ReportLACTIC [id number] 20:17:00 Test Item Value Reference Range Interpretation Comments LACTIC ACID (test code = LACT) 1.4 MMOL/L 0.4-2.0 N BASIC METABOLIC [id number] 20:17:00 Test Item Value Reference Range Interpretation Comments SODIUM (test code = NA) 135 mmol/l 134.0-147.0 N POTASSIUM (test code = K) 4.1 mmol/L 3.6-5.2 N CHLORIDE (test code = CL) 99 mmol/l 98.0-107.0 N CARBON DIOXIDE (test code = CO2) 28.1 mmol/l 21.0-33.0 N ANION GAP (test code = GAP) 12.0 0-20 N GLUCOSE (test code = GLU) 90 mg/dl 70.0-110.0 N BLOOD UREA NITROGEN (test code = 10 mg/dl 7.0-18.0 N BUN) CREATININE (test code = CREAT) 1.16 mg/dL 0.60-1.30 N GFR NON BLACK (test code = 78 mL/min 105-110 L GFRNONBLACK) GFR BLACK (test code = GFRBLACK) 94 mL/min 127-133 L CALCIUM (test code = CA) 9.2 mg/dl 8.0-10.5 N HEPATIC FUNCTION PANEL [id number] 20:17:00 Test Item Value Reference Range Interpretation Comments TOTAL PROTEIN (test code = PROT) 6.9 gm/dL 6.4-8.2 N ALBUMIN (test code = ALB) 3.1 gm/dl 3.2-4.7 L BILIRUBIN TOTAL (test code = BILT) 0.5 mg/dl 0.0-1.0 N BILIRUBIN DIRECT (test code = 0.3 mg/dl 0.0-0.3 N BILD) SGOT/AST (test code = AST) 13 Units/L 15.0-37.0 L SGPT/ALT (test code = ALT) 20 Units/L 12.0-78.0 N ALKALINE PHOSPHATASE TOTAL (test 80 Units/L 50.0-136.0 N code = ALKP) [id number] 20:17:00 Test Item Value Reference Range Interpretation Comments TROPONIN-I (test <0.02 NG/ML 0.00-0.06 N REFERENCE R PETRA code = TROPI) TROPONIN I HEA LTHY INDIVIDUALS: <0 .06 ng/mL R/O ISCHE DANIEL: 0.07 - 0.60 ng/ mL CUT-OFF RANGE F OR AMI: 0.60 - 1.5 ng/m L Coronavirus 2019 nCoV [id number] 20:16:00 Test Item Value Reference Range Interpretation Comments Coronavirus 2019 Negative NEGATIVE Negative re sults should be nCoV Bedside (test treated a s presumptive and code = ifinconsistent with [id number]) clinical signs and symptoms, or ne cessaryfor patient managem ent, should be tested with an alternativemole cular assay. Negative result s do not preclude [id number] tion and should not be u sed as the sole basis forp atient management deci sions. Negative result s should beconsidered in the context of a patient's recent exposures,histo ry, presence of clinical sig ns and symptoms consis tentwith COVID-19. BASIC METABOLIC [id number] 20:09:00 Test Item Value Reference Range Interpretation Comments SODIUM (test code = NA) 135 mmol/l 134.0-147.0 N POTASSIUM (test code = K) 4.1 mmol/L 3.6-5.2 N CHLORIDE (test code = CL) 99 mmol/l 98.0-107.0 N CARBON DIOXIDE (test code = CO2) 28.1 mmol/l 21.0-33.0 N ANION GAP (test code = GAP) 12.0 0-20 N GLUCOSE (test code = GLU) mg/dl 70.0-110.0 BLOOD UREA NITROGEN (test code = mg/dl 7.0-18.0 BUN) CREATININE (test code = CREAT) mg/dL 0.60-1.30 GFR NON BLACK (test code = mL/min 105-110 GFRNONBLACK) GFR BLACK (test code = GFRBLACK) mL/min 127-133 CALCIUM (test code = CA) mg/dl 8.0-10.5 HEPATIC FUNCTION PANEL [id number] 20:09:00 Test Item Value Reference Range Interpretation Comments TOTAL PROTEIN (test code = PROT) gm/dL 6.4-8.2 ALBUMIN (test code = ALB) gm/dl 3.2-4.7 BILIRUBIN TOTAL (test code = BILT) mg/dl 0.0-1.0 BILIRUBIN DIRECT (test code = BILD) mg/dl 0.0-0.3 SGOT/AST (test code = AST) Units/L 15.0-37.0 SGPT/ALT (test code = ALT) Units/L 12.0-78.0 ALKALINE PHOSPHATASE TOTAL (test Units/L 50.0-136.0 code = ALKP) [id number] 20:09:00 Test Item Value Reference Range Interpretation Comments TROPONIN-I (test code = TROPI) NG/ML 0.00-0.06 CBC W/MANUAL [id number] 20:00:00 Test Item Value Reference Range Interpretation Comments WHITE BLOOD CELL (test code = 24.6 K/mm3 4.5-11.0 H WBC) RED BLOOD CELL (test code = 4.49 M/mm3 4.40-5.90 N RBC) HEMOGLOBIN (test code = HGB) 14.8 gm/dL 13.0-17.0 N HEMATOCRIT (test code = HCT) 43.7 % 36.0-48.0 N MEAN CELL VOLUME (test code = 97.3 UM3 80.0-94.0 H MCV) MEAN CELL HGB (test code = MCH) 33.0 UUG 25.5-32.5 H MEAN CELL HGB CONCETRATION 33.9 gm/dL 29.0-35.5 N (test code = MCHC) RED CELL DISTRIBUTION WIDTH 12.8 % 11.5-15.0 N (test code = RDW) RED CELL DISTRIBUTION WIDTH SD 45.4 fL 34.8-50.2 N (test code = RDW-SD) PLATELET COUNT (test code = 219 K/mm3 150-400 N PLT) MEAN PLATELET VOLUME (test code 11.8 fl 7.4-10.4 H = MPV) NEUTROPHIL % (test code = NT%) 89.6 % 49.0-76.0 H IMMATURE GRANULOCYTE % (test 1.8 % 0.0-0.4 H code = IG%) LYMPHOCYTE % (test code = LY%) 2.7 % 23.0-38.0 L MONOCYTE % (test code = MO%) 5.6 % 1.0-10.0 N EOSINOPHIL % (test code = EO%) 0.0 % 1.0-5.0 L BASOPHIL % (test code = BA%) 0.3 % 0.0-1.0 N NEUTROPHIL # (test code = NT#) 22.0 K/mm3 2.4-6.3 H IMMATURE GRANULOCYTE # (test 0.45 x10 3/uL 0.00-0.07 H code = IG#) LYMPHOCYTE # (test code = LY#) 0.7 K/mm3 1.2-4.0 L MONOCYTE # (test code = MO#) 1.4 K/mm3 0.0-0.6 H EOSINOPHIL # (test code = EO#) 0.0 K/MM3 0.0-0.7 N BASOPHIL # (test code = BA#) 0.1 K/mm3 0.0-0.2 N SEGMENTED NEUTROPHILS (test % 50.0-70.0 code = SEG) LYMPHOCYTE (test code = LYMPH) % 20-40 CBC W/MANUAL [id number] 20:00:00 Test Item Value Reference Range Interpretation Comments WHITE BLOOD CELL (test code = 24.6 K/mm3 4.5-11.0 H WBC) RED BLOOD CELL (test code = 4.49 M/mm3 4.40-5.90 N RBC) HEMOGLOBIN (test code = HGB) 14.8 gm/dL 13.0-17.0 N HEMATOCRIT (test code = HCT) 43.7 % 36.0-48.0 N MEAN CELL VOLUME (test code = 97.3 UM3 80.0-94.0 H MCV) MEAN CELL HGB (test code = MCH) 33.0 UUG 25.5-32.5 H MEAN CELL HGB CONCETRATION 33.9 gm/dL 29.0-35.5 N (test code = MCHC) RED CELL DISTRIBUTION WIDTH 12.8 % 11.5-15.0 N (test code = RDW) RED CELL DISTRIBUTION WIDTH SD 45.4 fL 34.8-50.2 N (test code = RDW-SD) PLATELET COUNT (test code = 219 K/mm3 150-400 N PLT) MEAN PLATELET VOLUME (test code 11.8 fl 7.4-10.4 H = MPV) NEUTROPHIL % (test code = NT%) 89.6 % 49.0-76.0 H IMMATURE GRANULOCYTE % (test 1.8 % 0.0-0.4 H code = IG%) LYMPHOCYTE % (test code = LY%) 2.7 % 23.0-38.0 L MONOCYTE % (test code = MO%) 5.6 % 1.0-10.0 N EOSINOPHIL % (test code = EO%) 0.0 % 1.0-5.0 L BASOPHIL % (test code = BA%) 0.3 % 0.0-1.0 N NEUTROPHIL # (test code = NT#) 22.0 K/mm3 2.4-6.3 H IMMATURE GRANULOCYTE # (test 0.45 x10 3/uL 0.00-0.07 H code = IG#) LYMPHOCYTE # (test code = LY#) 0.7 K/mm3 1.2-4.0 L MONOCYTE # (test code = MO#) 1.4 K/mm3 0.0-0.6 H EOSINOPHIL # (test code = EO#) 0.0 K/MM3 0.0-0.7 N BASOPHIL # (test code = BA#) 0.1 K/mm3 0.0-0.2 N SEGMENTED NEUTROPHILS (test % 50.0-70.0 code = SEG) LYMPHOCYTE (test code = LYMPH) % 20-40 - US SCROTUM AND [id number] 18:24:00 FAX: Yaya Giraldo [phone] [place]: St: [facility] FAX: Xavier Baker MD [phone] -------- Name: DILLAN HITCHCOCK [facility] : 1990 Age/S: 28/M [address] [facility] Unit #: [id number] Loc: [address] Phys: [place] [address] Acct: [id number] Dis Date: Status: REG ER PHONE #: [phone] Exam Date: 08/01/2019 1725 FAX #: [phone] Reason: fall on fence w/ scrotal injury EXAMS: CPT CODE: [id number] US SCROTUM AND CNTS 26688 LOCATION: Q15 HISTORY: 28-year-old male who sufferedblunt trauma to his right scrotum. The patient fell onto a fence, striking his right groin. COMMENT:Sonographic imaging of this patient's scrotum and contents was obtained. Grayscale, color-flow, and Doppler waveform imaging modalities were utilized. RIGHT SIDE: The testicle exhibits normal echotexture and measures 46 x 27 x 35 mm. Low-resistance arterial blood flow seen in the testicle on the Doppler study. The epididymis is unremarkable measuring 13 x 5 x 25 mm. There is no evidence of a hydrocele or varicocele. There is notable scrotal wall thickening particularly lateral to the testicle, suggestive of edema. LEFT SIDE: The testicle exhibits normal echotexture and measures 43 x 23 x 33 mm. Low-resistance arterial blood flow is seen in the testicle on the Doppler study. The epididymis is unremarkable, measuring 25 x 9 x 18 mm. There is a varicocele present. There is no hydrocele present. Thescrotal wall is unremarkable. IMPRESSION: Subcutaneous soft tissue swelling and thickening is seen in the right hemiscrotal region likely due to the blunt trauma described in the history. The scrotal contents on the right side is unremarkable. On the left side a varicocele is demonstrated. The scrotal contents otherwise is unremarkable. PAGE 1 Signed Report (CONTINUED) FAX: Yaya Giraldo [phone] [place]: St: REG FAX: Xavier Baker MD [phone] Name: TOMASADILLAN A [facility] : 1990 Age/S: 28/M [address] [facility] Unit #: [id number] Loc: E[address]ERS[address] [place], [place]: [place] [address] Acct: [id number] Dis Date: Status: REG ER PHONE #: [phone] Exam Date: 08/01/2019 1725 FAX #: [phone] Reason: fall on fence w/ scrotal injury EXAMS: CPT CODE: [id number] [facility] [id number] (Continued) at 1824 Reported and signed by: David Curry M.D. CC: Yaya Michel MD; Xavier Baker MD Technologist: JACKELYN DEVINE [facility] Date/Time/By: 08/01/2019 (1823) : By: [email or web address] PAGE 2 Signed Report FAX: Yaya Giraldo [phone] [place]: St: REG FAX: Xavier Baker MD [phone] ------- Name: DILLAN HITCHCOCK [facility] : 1990 Age/S: 28/M [address] [facility] Unit #: [id number] Loc: [address] Phys: [place] [address] Acct: [id number] Dis Date: Status: REG ER PHONE #: [phone] Exam Date: 08/01/2019 1725 FAX #: [phone] Reason: fall on fence w/ scrotal injury EXAMS: CPT CODE: [id number] US SCROTUM AND CNTS 37510 (Continued) Orig Print D/T: S: 08/01/2019 (1826) PAGE 3 Signed Report- DUP AB/PEL/SC COMP 2019-08-01 18:24:00 FAX: Yaya Giraldo [phone] [place]: St: REG FAX: Xavier Baker MD [phone] -------- Name: DILLAN HITCHCOCK [facility] : 1990 Age/S: 28/M [address] [facility] Unit #: [id number] Loc: E.ERS[address] [place], [place]: [place] [address] Acct: [id number] Dis Date: Status: REG ER PHONE #: [phone] Exam Date: 08/01/2019 1725 FAX #: [phone] Reason: fall on fence w/ scrotal injury EXAMS: CPT CODE: [id number] DUP AB/PEL/SC COMP 45268 LOCATION: Q15 HISTORY: 28-year-old male who suffered blunt trauma to his right scrotum. The patient fell onto a fence, striking his right groin. COMMENT: Sonographic imaging of this patient's scrotum and contents was obtained. Grayscale, color- flow, and Doppler waveform imaging modalities were utilized. RIGHT SIDE: The testicle exhibits normal echotextureand measures 46 x 27 x 35 mm. Low-resistance arterial blood flow seen in the testicle on the Dopplerstudy. The epididymis is unremarkable measuring 13 x 5 x 25 mm. There is no evidence of a hydrocele or varicocele. There is notable scrotal wall thickening particularly lateral to the testicle, suggestive of edema. LEFT SIDE: The testicle exhibits normal echotexture and measures 43 x 23 x 33 mm. Low-resistance arterial blood flow is seen in the testicle on the Doppler study. The epididymis is unremarkable, measuring 25 x 9 x 18 mm. There is a varicocele present. There is no hydrocele present. The scrotal wall is unremarkable. IMPRESSION: Subcutaneous soft tissue swelling and thickening is seen in the right hemiscrotal region likely due to the blunt trauma described in the history. The scrotal contents on the right side is unremarkable. On the left side a varicocele is demonstrated. The scrotal contents otherwise is unremarkable. PAGE 1 Signed Report (CONTINUED) FAX: Yaya Giraldo [phone] [place]: St: REG FAX: Xavier Baker MD [phone] Name: DILLAN HITCHCOCK [facility] : 1990 Age/S:28/M [address] [facility] Unit #: [id number] Loc: E.ERS[address] [place], [place] Phys: Kamilla Baker [address] Acct: [id number] Dis Date: Status: REG ER PHONE #: [phone] Exam Date: 08/01/2019 1725 FAX #: [phone] Reason: fall on fence w/ scrotal injury EXAMS: CPT CODE: [id number] DUP AB/PEL/SC COMP 65499 (Continued) at 1824 Reported and signed by: David Curry M.D. CC: Yaya Michel MD; Xavier Baker MD Technologist: JACKELYN DEVINE Trnscrd Date/Time/By: 08/01/2019 (1823) : By: [email or web address] PAGE 2 Signed Report FAX: Yaya Giraldo [phone] [place]: St: [facility] FAX: Xavier Baker MD [phone] --------- Name: DILLAN HITCHCOCK [facility] : 1990 Age/S: 28/M [address] [place] [address] [employer] Unit #: [id number] Loc: E.ERS[address] [place], [place]: [place] [address] Acct: [id number] Dis Date: Status: REG ER PHONE #: [phone] Exam Date: 08/01/2019 1725 FAX #: [phone] Reason: fall on fence w/ scrotal injury EXAMS:CPT CODE: [id number] DUP AB/PEL/SC COMP 52852 (Continued) Orig Print D/T: S: 08/01/2019 (1827) PAGE 3 Signed ReportCBC W/AUTO [id number] 03:25:00 Test Item Value Reference Range Interpretation Comments WHITE BLOOD CELL (test code = 11.07 x10 3/uL 4.5-11.0 H WBC) RED BLOOD CELL (test code = 4.48 x10 6/uL 4.00-5.60 N RBC) HEMOGLOBIN (test code = HGB) 14.2 g/dL 12.5-16.9 N HEMATOCRIT (test code = HCT) 42.5 % 37.5-50.7 N MEAN CELL VOLUME (test code = 94.9 fL 81.0-99.0 N MCV) MEAN CELL HGB (test code = 31.7 pg 27.0-33.0 N MCH) MEAN CELL HGB CONCETRATION 33.4 g/dL 33.0-37.0 N (test code = MCHC) RED CELL DISTRIBUTION WIDTH CV 12.1 % 11.5-14.5 N (test code = RDW) RED CELL DISTRIBUTION WIDTH SD 42.0 fL 37.0-54.0 N (test code = RDW-SD) PLATELET COUNT (test code = 258 x10 3/uL 150-400 N PLT) MEAN PLATELET VOLUME (test 11.5 fL 7.0-9.0 H code = MPV) NEUTROPHIL % (test code = NT%) 74.9 % 56.0-77.0 N IMMATURE GRANULOCYTE % (test 0.2 % 0.0-2.0 N code = IG%) LYMPHOCYTE % (test code = LY%) 20.5 % 14.0-32.0 N MONOCYTE % (test code = MO%) 2.5 % 4.8-9.0 L EOSINOPHIL % (test code = EO%) 1.4 % 0.3-3.7 N BASOPHIL % (test code = BA%) 0.5 % 0.0-2.0 N NUCLEATED RBC % (test code = 0.0 % 0-0 N NRBC%) NEUTROPHIL # (test code = NT#) 8.30 x10 3/uL 2.0-7.6 H IMMATURE GRANULOCYTE # (test 0.02 x10 3/uL 0.00-0.03 N code = IG#) LYMPHOCYTE # (test code = LY#) 2.27 x10 3/uL 1.0-3.8 N MONOCYTE # (test code = MO#) 0.28 x10 3/uL 0.1-0.8 N EOSINOPHIL # (test code = EO#) 0.15 x10 3/uL 0.0-0.2 N BASOPHIL # (test code = BA#) 0.05 x10 3/uL 0.0-0.2 N NUCLEATED RBC # (test code = 0.00 x10 3/uL 0.0-0.1 N NRBC#) MANUAL DIFF REQUIRED (test NO code = MDIFF) - CT MAXIFAC W/O [id number] 00:00:00 Name: DILLAN HITCHCOCK [facility] : 1990 Age/S: 27 / M [address] [place] [address] Bl Unit #: [id number] Loc: [place] [address] Phys: Ximena Valentine HOP WEIGHER Acct: [id number] Dis Date: Status: REG ER PHONE #: [phone] Exam Date: 09/22/2018 0332 FAX #: [phone] Reason: NASAL FRACTURE-EPITAXIS EXAMS: CPT CODE: [id number] CT MAXIFAC W/O CONTRAST 50296 EXAM: CT Maxillofacial Without Contrast EXAM DATE/TIME: 09/22/2018 3:05 AM CLINICAL HISTORY: 27 years old, male; Pain; Nose pain; Additional info: Nasal fracture-epitaxis TECHNIQUE: Axial computed tomography images of the face without intravenous contrast. All CT scans at this facility use at least one of these dose optimization techniques: automated exposure control; mA and/or kV adjustment per patient size (includes targeted exams where dose is matched to clinical indication); or iterative reconstruction. Coronal and sagittal reformatted images were created and reviewed. COMPARISON: CT MAXIFAC W/O CONTRAST 08/24/2018 1:16 AM FINDINGS: Orbits: No acute intraorbital abnormality. Globes are unremarkable. Sinuses: There is mild mucoperiosteal disease noted in the right maxillary sinus. Bones/joints: There is a mildly displaced nasal bone fracture noted. There is rightward deviation noted of the nasal septum. Dental: There is dental disease noted in the bilateral molars. Soft tissues: No significant facial soft tissue swelling. IMPRESSION: There is a mildly displaced nasal bone fracture noted. at 0404 Reported and signed by: Juventino Valentine M.D. PAGE 1 Signed Report (CONTINUED) Name: DILLAN HITCHCOCK [facility] : 1990 Age/S: 27 / M [address] [place] [address] Blvd Unit #: [id number] Loc: [place] [address] Phys: Ximena Valentine Acct: [id number] DisDate: Status: REG ER PHONE #: [phone] Exam Date: 09/22/2018331 FAX #: [phone] Reason: NASAL FRACTURE-EPITAXIS EXAMS: CPT CODE: [id number] CT MAXIFAC W/O CONTRAST 88350 <Continued> CC:Ximena Valentine Technologist:RT Leticia(R)(CT) CTDI: DLP: Trnscb Date/Time: 09/22/2018 (403) [email or web address] Orig Print D/T: S: 09/22/2018 (403) CTDI: DLP: PAGE 2 Signed Report"
--- NOTE | 2022-10-20 21:41 | EDPHYS ---
Physician Documentation [facility] Name: Ross Randolph Age: 31 yrs Sex: Male : 1990 Arrival Date: 10/20/2022 Time: 21:16 Bed DX3 Private MD: ED Physician Dominick Rao HPI: 10/20 21:31 This 31 yrs old Male presents to ER via EMS with unknown complaint. sp4 21:31 Very pleasant 31-year-old male presents with EMS for complaint of auditory sp4 hallucinations. Patient states he just got out of shelter about 20 minutes prior to arrival. Patient reports that prior to his shelter he has abused methamphetamines. Patient was released from the shelter and developed auditory hallucinations whereby he heard voices. On arrival with EMS patient denied active auditory hallucinations, denied homicidal or suicidal ideation. In fact on arrival patient reports feeling better and requested to be discharged. . Historical: - Allergies: 21:33 No Known Allergies; sp4 - Home Meds: 21:33 None [Active]; sp4 - PMHx: 21:33 None; sp4 - PSHx: 21:33 None; sp4 - Immunization history:: unable to obtain. - Social history:: unable to obtain. - Family history:: not pertinent. - Hospitalizations: : No recent hospitalization is reported. - History obtained from: EMS. ROS: 21:34 Constitutional: Negative for fever, chills, and weight loss, Eyes: Negative for injury, sp4 pain, redness, and discharge, ENT: Negative for injury, pain, and discharge, Neck: Negative for injury, pain, and swelling, Cardiovascular: Negative for chest pain, palpitations, and edema, Respiratory: Negative for shortness of breath, cough, wheezing, and pleuritic chest pain, Abdomen/GI: Negative for abdominal pain, nausea, vomiting, diarrhea, and constipation, Back: Negative for injury and pain, : Negative for injury, bleeding, discharge, and swelling, MS/Extremity: Negative for injury and deformity, Skin: Negative for injury, rash, and discoloration, Neuro: Negative for headache, weakness, numbness, tingling, and seizure, Psych: Negative for depression, suicide ideation, homicidal ideation, patient reported anxiety and auditory hallucinations, denied visual hallucinations. At the time of examination reported no symptoms and states that hallucinations are gone. Allergy/Immunology: Negative for hives, rash, and allergies, Endocrine: Negative for neck swelling, polydipsia, polyuria, polyphagia, and marked weight changes, Hematologic/Lymphatic: Negative for swollen nodes, abnormal bleeding, and unusual bruising. Exam: 21:35 Constitutional: This is a well developed, well nourished patient who is awake, alert, sp4 and in no acute distress. Patient is poorly groomed and has bare feet. Patient appears anxious but otherwise in no distress. Head/Face: Normocephalic, atraumatic. Eyes: Pupils equal round and reactive to light, extra-ocular motions intact. Lids and lashes normal. Conjunctiva and sclera are non-icteric and not injected. Cornea within normal limits. Periorbital areas with no swelling, redness, or edema. ENT: Nares patent. No nasal discharge, no septal abnormalities noted. Tympanic membranes are normal and external auditory canals are clear. Oropharynx with no redness, swelling, or masses, exudates, or evidence of obstruction, uvula midline. Mucous membranes moist. Neck: Trachea midline, no thyromegaly or masses palpated, and no cervical lymphadenopathy. Supple, full range of motion without nuchal rigidity, or vertebral point tenderness. No Meningismus. Chest/axilla: Normal chest wall appearance and motion. Nontender with no deformity. No lesions are appreciated. Cardiovascular: Regular rate and rhythm with a normal S1 and S2. No gallops, murmurs, or rubs. Normal PMI, no JVD. No pulse deficits. Respiratory: Lungs have equal breath sounds bilaterally, clear to auscultation and percussion. No rales, rhonchi or wheezes noted. No increased work of breathing, no retractions or nasal flaring. Abdomen/GI: Soft, non-tender, with normal bowel sounds. No distension or tympany. No guarding or rebound. No evidence of tenderness throughout. Back: No spinal tenderness. No costovertebral tenderness. Full range of motion. Skin: Warm, dry with normal turgor. Normal color with no rashes, no lesions, and no evidence of cellulitis. MS/ Extremity: Pulses equal, no cyanosis. Neurovascular intact. Full, normal range of motion. Neuro: Awake and alert, GCS 15, oriented to person, place, time, and situation. Cranial nerves II-XII grossly intact. Motor strength 5/5 in all extremities. Sensory grossly intact. Cerebellar exam normal. Normal gait. Psych: Awake, alert, with orientation to person, place and time. Patient has some mild anxiety on examination and appears to have mild restlessness but has otherwise normal examination. Denied homicidal or suicidal ideation. Vital Signs: 21:16 lg3 21:16 pt refused all care lg3 MDM: 21:28 Patient medically screened. sp4 21:35 Differential Diagnosis altered mental status. Differential Diagnosis psychosis . Data sp4 reviewed: vital signs, nurses notes, EMS record. ED course: Patient was offered medications for anxiety including intramuscular Geodon. Patient at this time declined any medication. Patient requested to be released from the emergency room and request to be released from the hospital. Since patient has normal mental status with normal orientation and has no homicidal or suicidal ideation patient deemed appropriate for release from the emergency room. Return to ER precautions were discussed with patient in detail. . Administered Medications: No medications were administered Disposition Summary: 10/20/22 21:41 Discharge Ordered Location: Home sp4 Problem: new sp4 Symptoms: are resolved sp4 Condition: Stable sp4 Diagnosis - Anxiety disorder, unspecified sp4 - Other specified anxiety disorders - Acute anxiety attac with auditory sp4 hallucinations Followup: sp4 - With: Private Physician - When: 7 - 10 days - Reason: Discharge Instructions: - Discharge Summary Sheet sp4 - Panic Attack sp4 Forms: - Thank You Letter sp4 Signatures: Shruthi Lord RN RN lg3 Dominick Rao MD MD sp4 Corrections: (The following items were deleted from the chart) 21:34 21:20 Allergies: Unable to obtain; lg3 sp4 21:34 21:20 Home Meds: Unable to obtain; lg3 sp4 21:34 21:20 PMHx: Unable to Obtain; lg3 sp4 21:34 21:20 PSHx: Unable to Obtain; lg3 sp4
--- NOTE | 2022-10-20 21:41 | ER ---
Nurse's Notes [facility] Name: Ross Randolph Age: 31 yrs Sex: Male : 1990 Arrival Date: 10/20/2022 Time: 21:16 Bed DX3 Private MD: Diagnosis: Anxiety disorder, unspecified;Other specified anxiety disorders-Acute anxiety attac with auditory hallucinations Presentation: 10/20 21:16 Chief complaint: EMS states: pt was in police custody having auditory hallucinations lg3 for the past 2 days. once released from longterm, EMS was called for transport to ER for eval. pt refusing all care at this time stating he only had a panic attack and is ok now. denies any suicidal or homicidal thoughts/tendencies. Coronavirus screen: At this time, the client does not indicate any symptoms associated with coronavirus-19. Ebola Screen: No symptoms or risks identified at this time. Risk Assessment: Do you want to hurt yourself or someone else? Patient reports no desire to harm self or others. Onset of symptoms is unknown. 21:16 Method Of Arrival: EMS: [facility] lg3 21:16 Acuity: BELINDA 4 lg3 Triage Assessment: 21:20 General: Appears in no apparent distress. comfortable, Behavior is anxious. Neuro: lg3 De [place] Santos Agitation-Sedation Scale (RASS): +1 Restless Level of Consciousness is awake, alert, obeys commands, Oriented to person, place, time, situation. Cardiovascular: No deficits noted. Respiratory: Airway is patent Trachea midline Respiratory effort is even, unlabored, Respiratory pattern is regular, symmetrical. GI: No deficits noted. : No deficits noted. Derm: No deficits noted. Skin is intact, Skin is dry, Skin is normal. Musculoskeletal: No deficits noted. Circulation, motion, and sensation intact. Range of motion: intact in all extremities. Historical: - Allergies: 21:33 No Known Allergies; sp4 - Home Meds: 21:33 None [Active]; sp4 - PMHx: 21:33 None; sp4 - PSHx: 21:33 None; sp4 - Immunization history:: unable to obtain. - Social history:: unable to obtain. - Family history:: not pertinent. - Hospitalizations: : No recent hospitalization is reported. - History obtained from: EMS. Screenin:47 [facility] ED Fall Risk Assessment (Adult) History of falling in the last 3 months, vc1 including since admission No falls in past 3 months (0 pts) Confusion or Disorientation No (0 pts) Intoxicated or Sedated No (0 pts) Impaired Gait No (0 pts) Mobility Assist Device Used No (0 pt) Altered Elimination No (0 pt) Score/Fall Risk Level 0 - 2 = Low Risk Oriented to surroundings, Maintained a safe environment, Educated pt \T\ family on fall prevention, incl call for assistance when getting out of bed. Abuse screen: Denies threats or abuse. Nutritional screening: No deficits noted. Tuberculosis screening: No symptoms or risk factors identified. Vital Signs: 21:16 lg3 21:16 pt refused all care lg3 ED Course: 21:16 Patient arrived in ED. lg3 21:20 Triage completed. lg3 21:20 Arm band placed on pt refused. lg3 21:21 Dominick Rao MD is Attending Physician. sp4 21:47 No provider procedures requiring assistance completed. Patient did not have IV access vc1 during this emergency room visit. Administered Medications: No medications were administered Medication: 21:47 VIS not applicable for this client. vc1 Outcome: 21:41 Discharge ordered by . sp4 21:47 Discharged to home ambulatory. vc1 21:47 Condition: good 21:47 Discharge instructions given to patient, Instructed on discharge instructions, follow up and referral plans. Demonstrated understanding of instructions, follow-up care. 21:47 Patient left the ED. vc1 Signatures: Shruthi Lord RN RN lg3 Tish Finn RN RN vc1 Dominick Rao MD MD sp4 Corrections: (The following items were deleted from the chart) 21:34 21:20 Allergies: Unable to obtain; lg3 sp4 21:34 21:20 Home Meds: Unable to obtain; lg3 sp4 21:34 21:20 PMHx: Unable to Obtain; lg3 sp4 21:34 21:20 PSHx: Unable to Obtain; lg3 sp4
== END 2022-10-20 21:47 | disposition home or self-care (01) ==
LOC: ER 21:12
DX: F41.0 Panic disorder [episodic paroxysmal anxiety] (principal); F41.9 Anxiety disorder, unspecified
CPT/HCPCS: 99282